=== PATIENT | male | born 1980 | race Caucasian/White ===

== ENCOUNTER 2019-11-20 00:53 | Emergency (ER) | payer OTHER ==
[~2019-11-20] VITALS: Ht 175.3 cm; Wt 81.6 kg
[2019-11-20 01:01] VITALS: Ht 175.3 cm; Wt 81.6 kg
[2019-11-20 03:17] LABS: PLATELET COUNT 269 x10^3mcL (130-400); RED CELL DISTRIBUTION WIDTH 13.7 % (11.5-14.5)
[2019-11-20 03:26] LABS: BASOPHIL % 0 % (0-2)
[2019-11-20 04:05] LABS: CALCIUM 8.7 mg/dL (8.5-10.1); CARBON DIOXIDE 29.5 mmol/L (21-32); CHLORIDE SERUM 107 mmol/L (98-107); GFR1 > 60 mL/min; GLUCOSE SERUM 102 mg/dL (74-106); POTASSIUM SERUM 4.2 mmol/L (3.5-5.1); SODIUM SERUM 144 mmol/L (136-145)
[2019-11-20 04:10] LABS: ALBUMIN 4.1 g/dL (3.4-5.0); ALKALINE PHOSPHATASE 57 U/L (46-116); ALT/SGPT 40 U/L (16-63); AST/SGOT 29 U/L (15-37); BILIRUBIN TOTAL 1.36 mg/dL (0.20-1.00); LIPASE 61 IU/L (73-393); TOTAL PROTEIN, SERUM 7.5 g/dL (6.4-8.2)
[2019-11-20 05:57] LABS: microscopic required? NO
[2019-11-20 07:03] LABS: UA SPECIFIC GRAVITY 1.025 (1.005-1.035); urine erythrocyte NEGATIVE (NEGATIVE)
[2019-11-20 07:41] VITALS: BP 120/70
== END 2019-11-20 07:49 | disposition home or self-care (01) ==
LOC: ED 00:53
PROVIDERS: Emergency Medicine
DX: E86.0 Dehydration (principal); R11.10 Vomiting, unspecified; R19.7 Diarrhea, unspecified; R10.84 Generalized abdominal pain
CPT/HCPCS: J1885; J2405

== ENCOUNTER 2020-05-27 11:05 | Emergency (ER) | payer OTHER ==
[~2020-05-27] VITALS: Ht 175.3 cm; Wt 89.4 kg
[2020-05-27 11:18] VITALS: Ht 175.3 cm; Wt 89.4 kg
[2020-05-27 12:06] VITALS: BP 130/93
== END 2020-05-27 12:07 | disposition home or self-care (01) ==
LOC: ED 11:05
DX: L03.116 Cellulitis of left lower limb (principal)

== ENCOUNTER 2020-10-10 20:39 | Emergency (ER) | payer OTHER ==
[~2020-10-10] VITALS: Ht 175.3 cm; Wt 81.6 kg
[2020-10-10 21:00] VITALS: BP 140/105; Ht 175.3 cm; Wt 81.6 kg
== END 2020-10-10 21:40 | disposition admitted as inpatient to this hospital (09) ==
LOC: ED 20:39
DX: S09.8XXA Other specified injuries of head, initial encounter (principal); W18.30XA Fall on same level, unspecified, initial encounter; Y93.89 Activity, other specified; Y92.89 Other specified places as the place of occurrence of the external cause; Y99.8 Other external cause status

== ENCOUNTER 2020-10-10 20:39 | Emergency (ER) | payer OTHER | END 2020-10-10 21:40 | disposition admitted as inpatient to this hospital (09) | LOC: ED 20:39 | DX: Z02.89 Encounter for other administrative examinations (principal) ==

== ENCOUNTER 2020-11-04 10:52 | Emergency (ER) | payer OTHER ==
[~2020-11-04] VITALS: Ht 175.3 cm; Wt 89.8 kg
[2020-11-04 11:00] VITALS: BP 133/84; Ht 175.3 cm; Wt 89.8 kg
[2020-11-04] MEDS ORDERED: KEFLEX500 M1 PO (11:48)
[2020-11-04] MEDS ORDERED: BACTRIM DS1 TAB PO (11:48)
[2020-11-04] MEDS ORDERED: MOT600 PO (11:51)
== END 2020-11-04 13:20 | disposition home or self-care (01) ==
LOC: ED 10:52
DX: L02.31 Cutaneous abscess of buttock (principal); L03.317 Cellulitis of buttock
CPT/HCPCS: J0696

== ENCOUNTER 2020-11-27 02:35 | Emergency (ER) | payer OTHER ==
[~2020-11-27] VITALS: Ht 175.3 cm; Wt 81.6 kg
[~2020-11-27 02:35] MED LIST: BACTRIM DS1 TAB PO; KEFLEX500 M1 PO; MOT600 PO
[2020-11-27 02:42] VITALS: Ht 175.3 cm; Wt 81.6 kg
[2020-11-27 03:40] LABS: RED CELL DISTRIBUTION WIDTH 13.6 % (12.1-16.2)
[2020-11-27 03:42] LABS: BASOPHIL % 1.2 % (0.2-1.5)
[2020-11-27 03:43] LABS: PLATELET COUNT 424 x10^3mcL (152-348)
[2020-11-27 04:26] LABS: CALCIUM 8.6 mg/dL (8.5-10.1); CARBON DIOXIDE 27.2 mmol/L (21-32); CHLORIDE SERUM 102 mmol/L (98-107); CREATININE SERUM 1.2 mg/dL (0.7-1.3); GFR1 > 60 mL/min; GLUCOSE SERUM 99 mg/dL (74-106); POTASSIUM SERUM 4.1 mmol/L (3.5-5.1); SODIUM SERUM 138 mmol/L (136-145)
[2020-11-27 04:30] LABS: ALBUMIN 3.8 g/dL (3.4-5.0); ALKALINE PHOSPHATASE 87 U/L (46-116); ALT/SGPT 35 U/L (16-63); AST/SGOT 20 U/L (15-37); BILIRUBIN TOTAL 0.25 mg/dL (0.20-1.00); TOTAL PROTEIN, SERUM 7.4 g/dL (6.4-8.2); URIC ACID 4.1 mg/dL (3.5-7.2)
[2020-11-27 04:48] LABS: APPEARANCE FLUID CLOUDY; SITE FLUID LEFT
[2020-11-27 04:49] LABS: COLOR FLUID YELLOW; RBC FLUID 15 /cumm; WBC FLUID 390 /cumm
[2020-11-27 04:50] LABS: SOURCE FLUID SYNOVIAL FLUID
[2020-11-27 04:51] LABS: LYMPHOCYTE FLUID 20 %
[2020-11-27 06:24] VITALS: BP 137/80
== END 2020-11-27 06:24 | disposition home or self-care (01) ==
LOC: ED 02:35
PROVIDERS: Emergency Medicine
DX: M25.461 Effusion, right knee (principal); M54.9 Dorsalgia, unspecified

== ENCOUNTER 2020-11-29 13:07 | Emergency (ER) | payer OTHER ==
[~2020-11-29] VITALS: Ht 175.3 cm; Wt 86.2 kg
[2020-11-29 13:10] VITALS: Ht 175.3 cm; Wt 86.2 kg
[2020-11-29 14:26] VITALS: BP 115/75
== END 2020-11-29 14:26 | disposition home or self-care (01) ==
LOC: ED 13:07
DX: M25.461 Effusion, right knee (principal)

== ENCOUNTER 2020-12-07 12:55 | Inpatient (IN) | payer OTHER ==
[~2020-12-07] VITALS: Ht 172.7 cm; Wt 79.4 kg
[2020-12-07 12:59] VITALS: Ht 172.7 cm; Wt 79.4 kg
[2020-12-07 13:55] LABS: RED CELL DISTRIBUTION WIDTH 13.1 % (12.1-16.2)
[2020-12-07 13:57] LABS: BASOPHIL % 0.6 % (0.2-1.5)
[2020-12-07 13:58] LABS: PLATELET COUNT 431 x10^3mcL (152-348)
[2020-12-07 14:26] LABS: CALCIUM 9.2 mg/dL (8.5-10.1); CARBON DIOXIDE 33.5 mmol/L (21-32); CHLORIDE SERUM 100 mmol/L (98-107); GFR1 > 60 mL/min; GLUCOSE SERUM 110 mg/dL (74-106); POTASSIUM SERUM 3.8 mmol/L (3.5-5.1); SODIUM SERUM 136 mmol/L (136-145)
[2020-12-07 14:31] LABS: ALKALINE PHOSPHATASE 73 U/L (46-116); ALT/SGPT 35 U/L (16-63); AST/SGOT 18 U/L (15-37); BILIRUBIN TOTAL 0.3 mg/dL (0.20-1.00); C REACTIVE PROTEIN 4.8 mg/dL (<=0.9); TOTAL PROTEIN, SERUM 7.4 g/dL (6.4-8.2)
[2020-12-07 14:34] LABS: ALBUMIN 3.1 g/dL (3.4-5.0)
[2020-12-07 14:47] LABS: ERYTHROCYTE SED RATE 65 mm/hr (0-15)
[2020-12-07 19:27] LABS: APPEARANCE FLUID CLOUDY; COLOR FLUID PALE YELLOW; SOURCE FLUID SYNOVIAL FLUID; WBC FLUID 40900 /cumm
[2020-12-07 19:28] LABS: LYMPHOCYTE FLUID 7 %; MONOCYTE FLUID 3 %; RBC FLUID 2300 /cumm
[2020-12-08 01:37] VITALS: BP 122/72
[2020-12-08 05:55] VITALS: BP 108/69
[2020-12-08 08:24] VITALS: BP 139/91
[2020-12-08 12:04] VITALS: BP 117/78
[2020-12-08 16:00] VITALS: BP 112/76
[2020-12-08 18:25] LABS: CALCIUM 8.7 mg/dL (8.5-10.1); CARBON DIOXIDE 28.2 mmol/L (21-32); CHLORIDE SERUM 101 mmol/L (98-107); CREATININE SERUM 0.9 mg/dL (0.7-1.3); GFR1 > 60 mL/min; GLUCOSE SERUM 70 mg/dL (74-106); POTASSIUM SERUM 4.3 mmol/L (3.5-5.1); SODIUM SERUM 136 mmol/L (136-145)
[2020-12-08 22:00] VITALS: BP 117/80
[2020-12-09 05:20] VITALS: BP 129/92
[2020-12-09 06:47] LABS: BASOPHIL % 0.9 % (0.2-1.5); RED CELL DISTRIBUTION WIDTH 13.1 % (12.1-16.2)
[2020-12-09 07:06] LABS: PLATELET COUNT 488 x10^3mcL (152-348)
[2020-12-09 07:21] LABS: CALCIUM 9.2 mg/dL (8.5-10.1); CARBON DIOXIDE 30.4 mmol/L (21-32); CHLORIDE SERUM 99 mmol/L (98-107); CREATININE SERUM 0.9 mg/dL (0.7-1.3); GFR1 > 60 mL/min; GLUCOSE SERUM 89 mg/dL (74-106); POTASSIUM SERUM 4.1 mmol/L (3.5-5.1); SODIUM SERUM 138 mmol/L (136-145)
[2020-12-09 08:20] VITALS: BP 131/94
[2020-12-09 11:41] VITALS: BP 119/78
[2020-12-09 13:09] LABS: BASOPHIL % 0.7 % (0-2); PLATELET COUNT 468 x10^3mcL (130-400); RED CELL DISTRIBUTION WIDTH 13.2 % (11.5-14.5)
[2020-12-09 17:18] VITALS: BP 141/97
[2020-12-09 20:23] VITALS: BP 137/94
[2020-12-10 05:56] VITALS: BP 147/96
[2020-12-10 07:32] LABS: BASOPHIL % 0.5 % (0.2-1.5); RED CELL DISTRIBUTION WIDTH 12.9 % (12.1-16.2)
[2020-12-10 07:43] LABS: CALCIUM 9.7 mg/dL (8.5-10.1); CARBON DIOXIDE 32.3 mmol/L (21-32); CHLORIDE SERUM 98 mmol/L (98-107); CREATININE SERUM 0.9 mg/dL (0.7-1.3); GFR1 > 60 mL/min; GLUCOSE SERUM 90 mg/dL (74-106); POTASSIUM SERUM 4.5 mmol/L (3.5-5.1); SODIUM SERUM 136 mmol/L (136-145)
[2020-12-10 09:02] LABS: PLATELET COUNT 529 x10^3mcL (152-348)
[2020-12-10 09:12] VITALS: BP 134/87
[2020-12-10 12:16] VITALS: BP 137/93
[2020-12-10 15:49] VITALS: BP 146/95
[2020-12-10 20:23] VITALS: BP 108/67
[2020-12-11 05:15] VITALS: BP 111/73
[2020-12-11 06:47] LABS: BASOPHIL % 0.2 % (0.2-1.5); RED CELL DISTRIBUTION WIDTH 12.8 % (12.1-16.2)
[2020-12-11 07:00] LABS: CALCIUM 9.1 mg/dL (8.5-10.1); CARBON DIOXIDE 28.8 mmol/L (21-32); CHLORIDE SERUM 99 mmol/L (98-107); GFR1 > 60 mL/min; GLUCOSE SERUM 109 mg/dL (74-106); POTASSIUM SERUM 4.3 mmol/L (3.5-5.1); SODIUM SERUM 134 mmol/L (136-145)
[2020-12-11 07:46] VITALS: BP 103/80
[2020-12-11 08:07] LABS: PLATELET COUNT 586 x10^3mcL (152-348)
[2020-12-11 11:30] VITALS: BP 119/63
[2020-12-11 16:10] VITALS: BP 132/86
[2020-12-11 19:51] VITALS: BP 114/79
[2020-12-12 05:39] VITALS: BP 117/76
[2020-12-12 06:50] LABS: BASOPHIL % 0.9 % (0.2-1.5); RED CELL DISTRIBUTION WIDTH 12.6 % (12.1-16.2)
[2020-12-12 07:10] LABS: CALCIUM 8.6 mg/dL (8.5-10.1); CARBON DIOXIDE 30.3 mmol/L (21-32); CHLORIDE SERUM 104 mmol/L (98-107); CREATININE SERUM 0.8 mg/dL (0.7-1.3); GFR1 > 60 mL/min; GLUCOSE SERUM 91 mg/dL (74-106); POTASSIUM SERUM 3.9 mmol/L (3.5-5.1); SODIUM SERUM 138 mmol/L (136-145)
[2020-12-12 07:11] LABS: PLATELET COUNT 514 x10^3mcL (152-348)
[2020-12-12 08:27] VITALS: BP 144/100
[2020-12-12 12:00] VITALS: BP 126/81
[2020-12-12 16:13] VITALS: BP 135/86
[2020-12-12 20:28] VITALS: BP 135/88
[2020-12-13 04:52] VITALS: BP 152/111
[2020-12-13 09:02] VITALS: BP 149/105
[2020-12-13 10:37] VITALS: BP 149/105
== END 2020-12-13 11:05 | disposition home health service (06) | DRG 313 ==
LOC: ED 12:55 → MU 21:26
PROVIDERS: Student in an Organized Health Care Education/Training Program; ADMIT Internal Medicine; ATTEND Internal Medicine
PROC: 0S9C3ZZ Drainage of Right Knee Joint, Percutaneous Approach (ICD-10-PCS; principal; 2020-12-07)
PROC: 0SBC4ZZ Excision of Right Knee Joint, Percutaneous Endoscopic Approach (ICD-10-PCS; 2020-12-07)
PROC: 02HV33Z Insertion of Infusion Device into Superior Vena Cava, Percutaneous Approach (ICD-10-PCS; 2020-12-11)
DX: M00.9 Pyogenic arthritis, unspecified (principal); F17.200 Nicotine dependence, unspecified, uncomplicated; Z20.822 Contact with and (suspected) exposure to COVID-19; S83.206A Unspecified tear of unspecified meniscus, current injury, right knee, initial encounter; X58.XXXA Exposure to other specified factors, initial encounter; Z79.01 Long term (current) use of anticoagulants; Z79.891 Long term (current) use of opiate analgesic; Z79.899 Other long term (current) drug therapy; Y93.89 Activity, other specified; Y92.89 Other specified places as the place of occurrence of the external cause; Y99.8 Other external cause status
CPT/HCPCS: 97116-GP; 97530-GP; G0378; J0171; J0690; J0696; J1650; J1885; J2001; J2175; J2270; J2274; J2405; J2704; J3010; J3370; J3490; J7030; J7050; J7060; Q0163

== ENCOUNTER 2020-12-15 03:21 | Emergency (ER) | payer OTHER ==
[~2020-12-15] VITALS: Ht 175.3 cm; Wt 86.2 kg
[2020-12-15 03:43] VITALS: BP 159/106; Ht 175.3 cm; Wt 86.2 kg
== END 2020-12-15 03:52 | disposition left against medical advice (07) ==
LOC: ED 03:21
DX: Z53.21 Procedure and treatment not carried out due to patient leaving prior to being seen by health care provider (principal)

== ENCOUNTER 2020-12-18 13:06 | Emergency (ER) | payer OTHER ==
[~2020-12-18] VITALS: Ht 175.3 cm; Wt 86.2 kg
[2020-12-18 13:12] VITALS: BP 141/98; Ht 175.3 cm; Wt 86.2 kg
== END 2020-12-18 14:27 | disposition home or self-care (01) ==
LOC: ED 13:06
DX: M25.561 Pain in right knee (principal); Z98.890 Other specified postprocedural states; Z86.14 Personal history of Methicillin resistant Staphylococcus aureus infection
CPT/HCPCS: J1885